=== PATIENT | male | born 1940 | race Caucasian/White ===

== ENCOUNTER 2025-03-25 16:49 | Outpatient (CLI) | payer OTHER, BC ==
[~2025-03-25 16:49] MED LIST: ASPI-529 PO; CALC625T31 PO; DILT300C40 PO; FERR325T28 PO; LISI1TAB51 PO; LORA-512 PO; SIMV-42 PO; XAL0.005OS EACHEYE
--- NOTE | 2025-03-25 18:55 | RADIOLOGY REPORT ---
INDICATION: RIGHT SIATIC NERVE PAIN COMPARISON: None TECHNIQUE: 3 views of the lumbar spine were obtained. FINDINGS: The lumbar vertebral alignment is normal. Multilevel degenerative changes most severe L4-L5 through L5-S1 with anterior disc osteophyte complex es causing moderate to severe neural foraminal and spinal canal stenosis. No acute fracture, vertebral compression deformity or aggressive osseous lesions. The paravertebral soft tissues are grossly unremarkable. IMPRESSION: No acute fracture or subluxation.
== END 2025-03-25 23:59 | disposition home or self-care (01) ==
LOC: RAD 16:49
PROVIDERS: ATTEND Nurse Practitioner
DX: M47.27 Other spondylosis with radiculopathy, lumbosacral region (principal); M54.31 Sciatica, right side
CPT/HCPCS: 72110

== ENCOUNTER 2025-06-04 08:13 | Outpatient (CLI) | payer OTHER ==
--- NOTE | 2025-06-04 10:33 | RADIOLOGY REPORT ---
PROCEDURE: MR MRI LUMBAR SPINE INDICATION: RADICULOPATHY, LUMBAR REGION Exam Date: 06/04/2025 08:33 AM COMPARISON: DI LUMBAR SPINE COMPLTE on DOS: 03/25/25 TECHNIQUE: MRI lumbar spine without intravenous contrast. FINDINGS: The lumbar alignment is intact. Destructive endplate changes with associated marrow edema and abnorma l signal of the L5-S1 level suggesting osteomyelitis discitis. Possible epidural abscess at this. Par aspinal phlegmon at this level. There are degenerative endplate changes including modic endplate greenfield ges with anterior and lateral osteophytes throughout the lumbar spine. The visualized distal spinal c ord and conus medullaris are within normal limits. The conus medullaris appears to terminate within normal limits. The visualized retroperitoneal and paraspinal soft tissues are unremarkable. The following axial levels are detailed below: T12-L1: Unremarkable. L1-L2: There is a moderate circumferential disc bulge complicated by facet arthropathy associated w ith mild to moderate bilateral neuroforaminal stenosis. No significant central canal stenosis. L2-L3: There is a severe circumferential disc bulge complicated by facet arthropathy narrowing the central canal to 6 mm with associated moderate to severe bilateral neuroforaminal stenosis. L3-L4: There is a severe circumferential disc bulge complicated by facet arthropathy narrowing the central canal to 5 mm with associated moderate to severe bilateral neuroforaminal stenosis. L4-L5: There is a severe circumferential disc bulge complicated by facet arthropathy narrowing the central canal to 5 mm with associated moderate to severe bilateral neuroforaminal stenosis. L5-S1: There is a severe circumferential disc bulge complicated by facet arthropathy narrowing the c entral canal to 6 mm with associated moderate to severe bilateral neuroforaminal stenosis. IMPRESSION: 1. 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 This can be further evaluated with MRI of the lumbar spine with contrast. Clinical correlation a nd continued follow-up is recommended. 2. Advanced degenerative disease. Severe central canal stenosis L2-3 through L5-SNeural foraminal st enosis as above. 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 HS:Y
== END 2025-06-04 23:59 | disposition home or self-care (01) ==
LOC: MRI02 08:13
PROVIDERS: ATTEND Anesthesiology
DX: M51.17 Intervertebral disc disorders with radiculopathy, lumbosacral region (principal); M47.27 Other spondylosis with radiculopathy, lumbosacral region; M48.07 Spinal stenosis, lumbosacral region
CPT/HCPCS: 72148

== ENCOUNTER 2025-10-18 09:31 | Day surgery (SDC) | payer OTHER ==
[~2025-10-18] VITALS: Ht 162.6 cm; Wt 57.9 kg
[2025-10-18] MEDS: metoprolol tartrate 12.5mg (1/2 tablet) PO ONE (05:30)
[~2025-10-18 09:31] MED LIST changes: +APIX5TAB3 PO; -FERR325T28 PO; +normal saline 1000ml 1,000 ML IV SCH
[2025-10-18 09:49] VITALS: BP 128/60; PULSE 70; PULSE 78; RESP 16; TEMP 97.7; O2SAT 97
[2025-10-18] MEDS ORDERED: morphine 4 MG/ML inj SYRINge IV PRN (09:55)
[2025-10-18] MEDS ORDERED: ondansetron/PF 4mg/2ml inj IV PRN (09:55)
[2025-10-18] MEDS ORDERED: normal saline 1000ml 1,000 ML IV ONE (09:55)
[2025-10-18] MEDS ORDERED: fentaNYL/PF 50MCG/1 ML 2ML syringe IV PRN ×2 (09:55)
[2025-10-18] MEDS ORDERED: hydrALAZINE 20mg/ml inj. IV PRN (09:55)
[2025-10-18] MEDS ORDERED: labetalol 20mg/4ml (5mg/ml) syringe IV PRN (09:55)
--- NOTE | 2025-10-18 10:05 | ELECTROCARDIOGRAPH REPORT ---
[facility] Test Date: 2025-10-18 Test Time: 10:03:45 Pat Name: LUIS DAN Department: [facility]-PRE-OP Patient ID: [id number] Room: Gender: M Phys Ther: SAI : 1940 Requested By: EMILI ANTONIO Order Number: [id number] Reading MD: Dr. NOEMI Rutledge Measurements Intervals [place] Rate: 60 P: 42 MI: 188 QRS: 57 QRSD: 89 T: 76 QT: 414 QTc: 414 Interpretive Statements Sinus rhythm Probable left ventricular hypertrophy Electronically Signed On 10-18-2025 12:19:[address] NOEMI Rutledge Please click the below link to view image of tracing.
[2025-10-18 10:50] LABS: MEAN PLATELET VOLUME 8.0 FL (7.4-10.4); PRE OP HEMATOCRIT 23.5 % (42.0-52.0); PRE OP PLATELET COUNT 202 X10'3 (140-440); PRE OP WHITE BLOOD COUNT 7.5 10'3 (4.8-10.8); RED CELL DISTRIBUTION WIDTH 18.6 % (11.5-14.5)
[2025-10-18 11:08] LABS: CREATININE 1.67 MG/DL (0.60-1.10); PRE OP ALT 16 U/L (30-65); PRE OP ANION GAP 8 (8-16); PRE OP AST 22 U/L (10-37); PRE OP BILIRUB, TOTAL 0.2 MG/DL (0.0-1.0); PRE OP GLUCOSE 94 MG/DL (70-104); PRE OP POTASSIUM 4.4 MMOL/L (3.4-5.1); PRE OP SODIUM 142 MMOL/L (135-145); TOTAL CARBON DIOXIDE 23.3 MMOL/L (24-32); eCRCL 25 ML/MIN; eGFR 39 ML/MIN
[2025-10-18] MEDS ORDERED: BUPIVAcaine 0.5% inj/PF 30 ML ONE (11:24)
[2025-10-18] MEDS ORDERED: LIDOcaine 1% 30ml preserv. free vial ONE (11:25)
[2025-10-18 11:32] LABS: PLATELET ESTIMATE NORMAL
[2025-10-18 11:33] LABS: ELLIPTOCYTES FEW
[2025-10-18 11:55] LABS: PRE OP HEMOGLOBIN 7.9 g/dL (14.0-17.9)
[2025-10-18] MEDS ORDERED: fentaNYL/PF 50MCG/1 ML 2ML syringe ONE (12:34)
[2025-10-18] MEDS ORDERED: midazolam 1 mg/ML 2ml injection ONE (12:45)
[2025-10-18] MEDS ORDERED: propofol inj 20 ML IV ONE (12:46)
[2025-10-18 12:58] VITALS: BP 107/47; PULSE 61; RESP 14; O2SAT 100
--- NOTE | 2025-10-18 13:02 | PROCEDURE NOTE CC ---
Procedure Note Providers to CC CC: EMILI ANTONIO III, MD ~ Planned Procedure Tunneled Dialysis Catheter removal Indications No longer indicated. No longer requiring hemodialysis. Post Operative Dx: Status post removal of tunneled dialysis catheter. Junior Designer LAITH Lorenzo Type of Anesthesia Moderate sedation; local Informed Consent Tunneled dialysis catheter has been in place since June. Informed consent obtained, discussed risks, benefits and possible complications. Patient wishes to proceed. Description Patient prepped and draped in sterile fashion. Time out performed. 8cc local 0.5% marcaine and 1% lidocaine mixture injected to catheter site. Sharp and blunt dissection performed around cuff, catheter removed with patient in trendelenburg position. Catheter inspected, without fracture or clot burden. Pressure held to site for approximately 5 minutes, no signs of bleeding. Antibiotic ointment and transparent dressing applied. Estimated Blood Loss None Complication None X-Ray Findings Not indicated. DIAZ HAMILTON Oct 18, 2025 13:02
[2025-10-18 13:10] VITALS: BP 109/50; PULSE 58; RESP 9; O2SAT 96
[2025-10-18 13:20] VITALS: BP 104/51; PULSE 57; RESP 13; O2SAT 96
[2025-10-18 13:30] VITALS: BP 116/59; PULSE 63; RESP 11; O2SAT 96
[2025-10-18 13:40] VITALS: BP 118/58; PULSE 57; RESP 14; O2SAT 97
== END 2025-10-18 13:58 | disposition home or self-care (01) ==
LOC: PRE-OP 09:31
PROVIDERS: ATTEND Thoracic Surgery (Cardiothoracic Vascular Surgery)
DX: Z49.01 Encounter for fitting and adjustment of extracorporeal dialysis catheter (principal); D64.9 Anemia, unspecified; E78.5 Hyperlipidemia, unspecified; F17.210 Nicotine dependence, cigarettes, uncomplicated; I12.0 Hypertensive chronic kidney disease with stage 5 chronic kidney disease or end stage renal disease; N18.5 Chronic kidney disease, stage 5; Z85.89 Personal history of malignant neoplasm of other organs and systems; Z88.5 Allergy status to narcotic agent; Z88.8 Allergy status to other drugs, medicaments and biological substances; Z98.49 Cataract extraction status, unspecified eye; Z95.828 Presence of other vascular implants and grafts
CPT/HCPCS: 36415; 36589; 80053; 82948; 85008; 85025; 93005; A6258; J2003; J2250; J2704; J3010; J7030; J7040; Z7512; A4215; A4618; A7000; J0690